=== PATIENT | male | born 1955 | race Caucasian/White ===

== ENCOUNTER → 2022-01-15 13:39 | Outpatient (CLI) | payer OTHER, SELFPAY ==
--- NOTE | 2022-01-15 | DI.CT.S_ITS ---
PROCEDURE: CT ABDOMEN PELVIS W CON INDICATIONS: ACUTE EPIGASTRIC PAIN TECHNIQUE: After the administration of oral and intravenous contrast, axial sections were acquired from the lung bases to the pubic symphysis. Coronal and sagittal reformats were performed. For radiation dose reduction, the following was used: automated exposure control, adjustment of mA and/or kV according to patient size. COMPARISON:None. FINDINGS: Image quality: Excellent. Lung bases: Unremarkable. Heart: No significant findings. ABDOMEN: Liver: Innumerable tiny low-density liver lesions likely represent cysts versus hemangiomata. No liver lesions are noted which are suspicious solid masses. Gallbladder: Unremarkable. Biliary ducts: Unremarkable. Pancreas: Unremarkable. Spleen: Unremarkable. Adrenal Glands: Unremarkable. Kidneys and Ureters: Unremarkable. Stomach and Bowel: Diverticulosis without evidence of diverticulitis. No dilated loops. No thickened loops. Peritoneum: No abnormal intraperitoneal fluid. No free air. Ventral Wall: No hernia. Abdominal Nodes: No retroperitoneal or mesenteric adenopathy by size criteria. Vessels: Aorta and inferior vena cava are normal in size. PELVIS: Pelvic Organs: Unremarkable. Bladder: Unremarkable. Pelvic Nodes: No enlarged lymph nodes. Miscellaneous: No inguinal hernias are seen. Bones: Lumbar degenerative change. No lytic or blastic bony lesions. No compression fractures. IMPRESSION: 1. Numerous small low-density liver lesions likely represent cysts versus hemangiomata. 2. Diverticulosis. 3. No evidence acute abdominal process. Dictated by: Loyd Abdalla M.D. on 01/15/2022 at 16:59 Approved by: Loyd Abdalla M.D. on 01/15/2022 at 17:03
== END ==
PROVIDERS: PCP Internal Medicine; Referring Provider Internal Medicine; Visit Provider Internal Medicine
DX: K76.9 Liver disease, unspecified (principal); K57.90 Diverticulosis of intestine, part unspecified, without perforation or abscess without bleeding; K62.89 Other specified diseases of anus and rectum; R10.13 Epigastric pain
CPT/HCPCS: 74177; Q9967

== ENCOUNTER → 2022-01-31 11:31 | Outpatient (CLI) | payer OTHER, SELFPAY ==
[2022-01-31 12:55] LABS: COVID19 -Nasal RAPID Negative (Negative)
== END ==
PROVIDERS: PCP Internal Medicine; Visit Provider Surgery
DX: Z01.812 Encounter for preprocedural laboratory examination (principal); Z20.822 Contact with and (suspected) exposure to COVID-19
CPT/HCPCS: 87635; C9803

== ENCOUNTER 2022-02-03 12:59 | Day surgery (SDC) | payer OTHER, SELFPAY ==
--- NOTE | 2022-02-03 | PATH_ITS ---
[facility] Accession Number: [id number] . 01 Material submitted: . PART A: stomach - ANTRUM PART B: gastrointestinal site - GASTRIC POLYP PART C: colon - TRANSVERSE COLON POLYP X2 . 01 Diagnosis: A. Antrum, Biopsy: Gastric antral mucosa with mild chronic inflammation. Negative for Helicobacter organisms by immunohistochemistry. Negative for intestinal metaplasia. Negative for dysplasia or malignancy. . B. Gastric Polyp: Fundic gland polyps. No evidence of Helicobacter organisms on H/E stain. Negative for intestinal metaplasia. Negative for dysplasia and malignancy. . C. Transverse Colon Polyp x2: Portion of tubular adenoma x1. Portion of hyperplastic polyp x1. [facility] 02/07/2022 1453 Local . 01 Electronically signed: . Le Durán MD, Pathologist NPI- [id number] . 01 Gross description: . Part A: ANTRUM: Received in formalin is 1 fragment(s) of unñez, soft tissue measuring 0.3 x 0.3 x 0.2 cm submitted entirely in 1 cassette(s) Part B: GASTRIC POLYP: Received in formalin are 3 fragment(s) of nuñez, soft tissue measuring 0.3 x 0.3 x 0.3 cm to 0.3 x 0.2 x 0.2 cm submitted entirely in 1 cassette(s) Part C: TRANSVERSE COLON POLYP X2: Received in formalin are 2 fragment(s) of nuñez, soft tissue measuring 0.6 x 0.4 x 0.2 cm to 0.3 x 0.2 x 0.1 cm submitted entirely in 1 cassette(s) /[facility] 02/04/2022 0807 Local . 01 Microscopic: . A. An immunohistochemical stain was performed to evaluate for Helicobacter organisms and is negative. The control stain showed appropriate reactivity. . * This test was developed and its performance characteristics determined by [employer]. It has not been cleared or approved by the U.S. Food and Drug Administration. The FDA has determined that such clearance or approval is not necessary. This test is used for clinical purposes. It should not be regarded as investigational or for research. . 01 Pathologist provided ICD-10: Z12.11, R10.9, K63.5 . 01 CPT . 132001, 683065, 937984, S26610 Specimen Comment: A courtesy copy of this report has been sent to [phone] Performed at: 01 [facility] [address] [place] [address], [place], [place] [id number] MD Tang Barrera MD Phone: [phone]
[2022-02-03 13:27] VITALS: BP 143/88; PULSE 88; RESP 18; TEMP 36.6; O2SAT 98
--- NOTE | 2022-02-03 13:32 | P.HP_ITS ---
History of Present Illness History of Present Illness Date Patient Seen: 02/03/22 Time Patient Seen: 13:32 Chief complaint: [facility] Narrative: Patient indicates he has a personal history of colon polyps at colonoscopy from 5 years ago and was recommended for surveillance. He also indicates that over the last 2 months or so he has had fairly consistent epigastric pain with an element of radiation into his back. No associated weight loss. CT scan imaging did not account for any of his complaints. He went on a 1 month long course of omeprazole and did not notice any improvement. EGD was therefore requested in addition to colon cancer screening for today. Patient History Medical History Epigastric pain Review of Systems Review of Systems ROS: Yes All systems reviewed with the patient and are negative except as otherwise documented Exam Const General: cooperative and comfortable Orientation: alert HENMT Head: normocephalic Ears: external ears normal Nose: external nose normal Face and sinus: normal facial exam Mouth: oral mucosae normal Eyes General: appearance normal, both eyes and all related structures Neck Neck: normal visual inspection Chest Chest: normal inspection of the chest Resp Effort & Inspection: normal respiratory effort Cardio Rate: regular rate GI Inspection: normal to inspection Skin General: no rashes or lesions noted and No jaundice Neuro General: patient alert and moves all extremities Cognition: normal cognition Speech: speech normal Extrem General: no pedal edema Psych Appearance: grossly normal Assessment & Plan Assessment & Plan narrative: 66-year-old male with a personal history of colon polyps. He has a new history of epigastric pain x2 months. EGD and colonoscopy are pursued today. Time Spent With Patient Critical Care time: I spent a total of [] minutes of critical care time on this patient's care today; this time is exclusive of procedural time.
--- NOTE | 2022-02-03 13:34 | PM.PREOP ---
Pre-operative Note COVID-19 COVID-19 status: Negative Result date/Date tested (Pos, Neg/Pending): 01/31/22 Criteria for continued procedure: Possibility delay results in more complex future surgery or treatment Interval Note History & Physical reviewed/Exam performed by Physician: Yes Changes to H&P: No ASA Class (for procedural sedation): I
[2022-02-03 13:39] VITALS: BMI 27.8
[2022-02-03] MEDS: SODIUM CHLORIDE 0.9% 1,000 ML 150 ML IV (13:46)
--- NOTE | 2022-02-03 14:47 | P.OP.EGD&C_ITS ---
Operative Date/Time/Diagnoses Date of procedure: 02/03/22 Time of procedure: 14:47 Pre-op diagnosis: Epigastric pain personal history of colon polyps Post-op diagnosis: same Procedure & Clinicians Study performed: EGD with biopsies and colonoscopy with cold snare polypectomy and cold forceps polypectomy Same procedure as scheduled: Yes Indications: Epigastric pain and a personal history of colon polyps Surgeon: Casey Negrete Procedure Notes SCOAP/Timeout: Done Procedure in detail: After the risks and benefits were explained, written and verbal informed consent was obtained. The patient was brought into the procedure room and placed into the left lateral decubitus position. Please see nurse plastics seasoner operator notes for sedation details. The scope was introduced into the mouth through the bite block and advanced under direct visualization to the 2nd portion of the duodenum. The scope was slowly withdrawn carefully examining the mucosa for any defects or lesions. Retroflexed views were accomplished in the stomach. The stomach was decompressed, the scope was then removed from the patient who tolerated the procedure well. The patient was then turned around a digital rectal examination accomplished. No significant pathology was appreciated. The scope was introduced into the rectum and advanced to the cecum as identified by the appendiceal orifice and ileocecal valve. The scope was slowly withdrawn to carefully examine the mucosa for any defects or lesions. Multiple direct views were made through the dentate line for exclusion of pathology. The colon was decompressed scope removed from the patient who tolerated the procedure well. Adult colonoscope Bowel prep adequate Scope withdrawal time: 9 minutes Sedation minutes: 34 Complications: none Impression: 1. Duodenum: This was visually normal from the bulb through the 2nd portion. 2. Stomach: No gastric outlet obstruction. No ulcers no mass lesions. There was streaky subtly eroded erythematous appearing mucosa in the antrum and this was targeted for biopsy for exclusion of Helicobacter or other pathology. In the gastric body there were several diminutive and benign appearing polyps. A couple of these were sampled for histopathologic analysis. Otherwise retroflexed views of the LES were unremarkable. 3. Esophagus: The squamocolumnar junction correlated with the top of the gastric folds. The GE junction was at 48 cm from the incisors. No acute erosive changes no strictures no mass lesions. 4. Colon: There was a diminutive polyp in the transverse colon removed with cold snare. A 2nd slightly smaller polyp was identified in this region. This was removed with cold forceps. Grade 1 hemorrhoids were noted on direct views. Otherwise no significant additional pathology was appreciated. Endoscopic diagnosis 1. Erosive gastropathy 2. Gastric polyps 3. Colon polyps 4. Grade 1 hemorrhoids Post-procedure Plan for aftercare: 1. Await histopathology. 2. Without prior knowledge of the polyp histology from years ago, it would be appropriate to recommend surveillance colonoscopy in 5 years. 3. If Helicobacter is found it will need to be eradicated with standard triple therapy. 4. Avoid NSAID therapy for now. 5. If histology is negative, consider further gallbladder imaging. Disposition: PACU
[2022-02-03 14:49] VITALS: BP 117/81; PULSE 62; RESP 16; TEMP 36.2; O2SAT 97
[2022-02-03 14:55] VITALS: BP 118/77; PULSE 78; RESP 16; TEMP 36.6; O2SAT 98
[2022-02-03 15:11] VITALS: BP 122/72; PULSE 66; RESP 16; O2SAT 100
[2022-02-03 15:45] VITALS: BP 138/88; PULSE 86; RESP 16; O2SAT 98
== END 2022-02-03 15:50 | disposition home or self-care (01) ==
PROVIDERS: PCP Internal Medicine; Referring Provider Internal Medicine Gastroenterology; Visit Provider Internal Medicine Gastroenterology
PROC: 0DJ08ZZ Inspection of Upper Intestinal Tract, Via Natural or Artificial Opening Endoscopic (ICD-10-PCS; CPT 43235; principal; 2022-02-03 14:00)
PROC: 0DJD8ZZ Inspection of Lower Intestinal Tract, Via Natural or Artificial Opening Endoscopic (ICD-10-PCS; CPT 45378; 2022-02-03 14:00)
DX: Z12.11 Encounter for screening for malignant neoplasm of colon (principal); R10.13 Epigastric pain; K64.0 First degree hemorrhoids; K31.9 Disease of stomach and duodenum, unspecified; K31.7 Polyp of stomach and duodenum; K29.50 Unspecified chronic gastritis without bleeding; D12.3 Benign neoplasm of transverse colon
CPT/HCPCS: 45385; 45380; 43239; J2704

== ENCOUNTER → 2022-02-24 15:50 | Outpatient (CLI) | payer OTHER, SELFPAY ==
--- NOTE | 2022-02-24 | DI.US.S_ITS ---
PROCEDURE: US ABDOMEN COMPLETE INDICATIONS: Unspecified abdominal pain TECHNIQUE: Real-time scanning was performed of the abdominal and retroperitoneal organs, with image documentation. COMPARISON: [facility], CT, CT ABDOMEN PELVIS W CON, 01/15/2022, 14:40. FINDINGS: Liver: Multiple hepatic cysts. Increased hepatic parenchymal echogenicity indicative of diffuse mild hepatic steatosis. Gallbladder: Gallbladder is normal without wall thickening or pericholecystic fluid. No sludge or gallstone. Biliary ducts: Common bile duct measures up to 7 millimeters. No intrahepatic biliary ductal dilatation. Pancreas: Visualized portions of the pancreas are sonographically normal. Spleen: Spleen is normal in size and homogeneous in echotexture. Kidneys: Normal size and appearance of both kidneys. Aorta: Visualized aorta is normal in caliber at less than 3 cm. Iliacs: Proximal common iliac arteries are normal in caliber at less than 2.5 cm. IVC: Intrahepatic inferior vena cava is patent. Miscellaneous: No free abdominal fluid. IMPRESSION: Common duct diameter at the upper limits of normal without a intraluminal stone identified. This is of unknown clinical significance. Correlate for other clinical evidence of biliary tract obstruction. Mild hepatic steatosis. Dictated by: Kunal Paiz M.D. on 02/25/2022 at 12:02 Approved by: Kunal Paiz M.D. on 02/25/2022 at 12:07
== END ==
PROVIDERS: PCP Internal Medicine; Referring Provider Internal Medicine Gastroenterology; Visit Provider Internal Medicine Gastroenterology
DX: K76.0 Fatty (change of) liver, not elsewhere classified (principal); K76.89 Other specified diseases of liver; R10.9 Unspecified abdominal pain
CPT/HCPCS: 76700

== ENCOUNTER 2022-04-13 21:59 | Emergency (ER) | payer OTHER, SELFPAY ==
[2022-04-13 22:20] VITALS: BP 117/68; PULSE 77; RESP 18; TEMP 36.3; O2SAT 96; BMI 27.1
--- NOTE | 2022-04-13 22:39 | DI.RAD.S_ITS ---
PROCEDURE: XR SCAPULA LT INDICATIONS: fall, pain to palp, hx scapula fx TECHNIQUE: 2 views of the scapula were acquired. COMPARISON: None. FINDINGS: Bones: No definite acute fractures or dislocations. No suspicious bony lesions. Visualized ribs appear intact. Soft tissues: Overlying soft tissues appear normal. IMPRESSION: 1. No definite acute fracture identified. Dictated by: Tang Rice M.D. on 04/14/2022 at 0:05 Approved by: Tang Rice M.D. on 04/14/2022 at 0:06
[2022-04-13 23:20] VITALS: PULSE 81; O2SAT 96
[2022-04-13 23:30] VITALS: PULSE 84; O2SAT 96
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
--- NOTE | 2022-04-13 23:48 | DI.CT.S_ITS ---
PROCEDURE: CT CHEST WO CON INDICATIONS: left scapular/rib pain, fall TECHNIQUE: Noncontrast 5 mm thick sections acquired from the pulmonary apices to the posterior costophrenic angles. 1 mm lung window, 5 mm thick coronal and sagittal and 7 mm axial MIP reformats were then acquired. For radiation dose reduction, the following was used: automated exposure control, adjustment of mA and/or kV according to patient size. COMPARISON: [facility], [place], XR SCAPULA LT, 04/13/2022, 22:53. FINDINGS: Image quality: Excellent. Lower Neck: No lymphadenopathy by size criteria. Thyroid: Visualized thyroid demonstrates no discrete nodules. Axillae: No lymphadenopathy by size criteria. Chest Wall: Unremarkable. Bones: No acute fractures identified. Specifically, no evidence of scapular or rib fractures. Visualized osseous structures demonstrate no suspicious lesions. Lungs and Airways: No acute consolidation. There is mild dependent atelectasis. Within the medial left upper lobe, there is a subpleural nodule measuring up to approximately 0.6 cm on series 5, image 136. The trachea and central airways are patent. Pleura: No pneumothorax or pleural effusions. Heart: Heart size is normal. No pericardial effusion. Thoracic Vessels: The aorta and pulmonary arteries are normal in size. Mediastinum and Shauna: No lymphadenopathy by size criteria. Esophagus: No wall thickening. No hiatal hernia. Abdomen: Visualized upper abdomen demonstrates scattered hepatic cysts as well as numerous additional small low-density foci in the liver which are too small to characterize but likely represent cysts. IMPRESSION: 1. No acute scapular or rib fracture identified as clinically queried. 2. No definite acute traumatic abnormality in the thorax. 3. Left upper lobe medial pulmonary nodule measuring up to 0.6 cm. If patient is at high risk for malignancy, a follow-up CT may be performed in 12 months to demonstrate stability. Dictated by: Tang Rice M.D. on 04/14/2022 at 0:38 Approved by: Tang Rice M.D. on 04/14/2022 at 0:43
[2022-04-14] VITALS: PULSE 81; O2SAT 98
[2022-04-14 00:22] VITALS: BP 122/69; PULSE 92; O2SAT 96
[2022-04-14] MEDS: ACETAMINOPHEN 325 MG TABLET 975 MG PO (00:22)
== END 2022-04-14 01:00 | disposition home or self-care (01) ==
PROVIDERS: Emergency Provider Emergency Medicine; PCP Internal Medicine
DX: M54.6 Pain in thoracic spine (principal); R07.81 Pleurodynia; W10.9XXA Fall (on) (from) unspecified stairs and steps, initial encounter
CPT/HCPCS: 71250; 73010; 99284

== ENCOUNTER → 2022-11-04 08:42 | Outpatient (CLI) | payer OTHER, SELFPAY ==
[2022-11-04 09:55] LABS: Alanine Aminotransferase 22 IU/L (<50); Albumin Globulin Ratio 1.6 (1.0-2.8); Alkaline Phosphatase 50 U/L (38-126); Aspartate Aminotransferase 22 IU/L (17-59); Bilirubin Total 1.1 mg/dL (0.2-1.3); Bilirubin Unconjugated 0.9 mg/dL (0.0-1.1); Globulin 2.5 g/dL (1.7-4.1); HEMOLYSIS < 15 (0-50); Lipase 127 U/L (23-300); Total Protein 6.5 g/dL (6.3-8.2)
[2022-11-07 18:59] LABS: H. Pylori Antigen Stool Negative (Negative)
== END ==
PROVIDERS: PCP Internal Medicine; Referring Provider Internal Medicine Gastroenterology; Visit Provider Internal Medicine Gastroenterology
DX: R10.13 Epigastric pain (principal); K83.9 Disease of biliary tract, unspecified; R10.9 Unspecified abdominal pain
CPT/HCPCS: 36415; 80076; 83690; 87338